=== PATIENT | male | born 1960 | race Caucasian/White ===

== ENCOUNTER 2022-10-19 20:11 | Emergency (ER) | payer OTHER, SELFPAY ==
[2022-10-19 20:21] VITALS: BP 151/95; PULSE 78; RESP 18; TEMP 36.8; O2SAT 97; BMI 30.3
[2022-10-19 22:03] VITALS: BP 178/94; PULSE 70; RESP 18; O2SAT 99
[2022-10-19 22:05] LABS: Appearance Urine Cloudy (Clear); Bilirubin Urine Negative (Negative); Blood Urine 3+ (Negative); Color Urine Yellow (Yellow); Glucose Urine 1+ (Negative); Ketones Urine Negative (Negative); Leukocyte Esterase Urine Negative (Negative); Nitrite Urine Negative (Negative); Protein Urine 1+ (Negative); Specific Gravity Urine 1.025 (1.000-1.030); Urobilinogen Urine 0.2 (0.2-1.0)
--- NOTE | 2022-10-19 22:13 | CRLHL7_ITS ---
For Patients: As a result of the Century Cures Act, medical imaging exams and procedure reports are released immediately into your electronic medical record. You may view this report before your referring provider. If you have questions, please contact your health care provider. INDICATION: .RT FLANK PAIN TECHNIQUE: CT abdomen and pelvis without contrast. COMPARISON: None. FINDINGS: Lower chest: Calcified granuloma. Subsegmental atelectasis. ASD closure device. Atherosclerotic calcifications. ABDOMEN: Liver: Normal attenuation. Gallbladder and biliary: Cholelithiasis in an otherwise normal gallbladder. Normal caliber bile ducts. Spleen: Normal size and attenuation. Pancreas: The noncontrast pancreas is homogeneous in attenuation without peripancreatic inflammatory changes or ductal dilatation. Adrenal glands: Tiny right adrenal nodule is incompletely characterized however may reflect an adenoma. Kidneys and ureters: Mild right-sided hydroureteronephrosis secondary to a 1 millimeter stone in the right UVJ. There is perinephric stranding. Subcentimeter hypodensities are too small to characterize however statistically represent cysts. GI tract: Stomach is partially distended with oral debris and air. Tiny duodenal lipoma. Normal caliber small and large bowel loops. Normal appendix. Colonic diverticulosis without diverticulitis. Vascular structures: Normal caliber aorta with atherosclerotic calcifications. Retro aortic left renal vein, normal variant. Lymph nodes: No lymphadenopathy in the abdomen or pelvis by size criteria. Peritoneum: No free air, free fluid, or focal drainable fluid collection. PELVIS: Genitourinary system: Urinary bladder is decompressed. Prostatectomy. SKELETAL STRUCTURES AND SOFT TISSUES: Diffuse sclerotic metastases throughout the skeleton. IMPRESSION: 1. Mild right-sided hydroureteronephrosis secondary to a 1 millimeter stone within the right UVJ. There is perinephric stranding. 2. Diffuse sclerotic metastases throughout the skeleton. Please note that all CT scans at this facility use dose modulation, iterative reconstruction, and/or weight-based dosing when appropriate to reduce radiation dose to as low as reasonably achievable. Dictated by Rajat Sanz MD @ 10/20/2022 12:53:58 AM (Electronically Signed)
--- NOTE | 2022-10-19 22:25 | ED.GENADULT ---
HPI - General Adult General Time Seen by Provider: 22:25 Date Seen: 10/19/22 Chief complaint: Urogenital Problems, Male Stated complaint: Can't urinate, back pain Time Seen by Provider: 10/19/22 21:55 Source: patient Mode of arrival: ambulatory Limitations: no limitations History of Present Illness HPI narrative: Patient is a 61-year-old male with history of prostate cancer with metastasis to his bone presented emergency department for right flank pain and difficulty urinating. Patient started chemotherapy 21 days ago and is set to get his next dose this upcoming Friday. Patient states he started having flank pain today and they tried to get a hold of his urologist but were unable to. Pain was getting worse and is having difficulty urinating was concerned they were related. He does states he was told that the chemotherapy he is on will cause urinary retention and constipation. He also knows blood in his urine the other day but that has since resolved. He has urinated several times throughout the day but only small amounts. Denies fevers, chills, chest pain, dysuria, abdominal pain, nausea vomiting, diarrhea, headache, lightheadedness, dizziness. Related Data Home Medications Medication Instructions Recorded Confirmed aspirin 81 mg tablet,delayed 81 mg PO DAILY 10/19/22 10/19/22 release (Adult Aspirin Regimen) famotidine 40 mg tablet 40 mg PO DAILY 10/19/22 10/19/22 isosorbide mononitrate 60 mg 60 mg PO DAILY 10/19/22 10/19/22 tablet,extended release 24 hr losartan 50 mg-hydrochlorothiazide 1 tab PO DAILY 10/19/22 10/19/22 12.5 mg tablet Allergies Allergy/AdvReac Type Severity Reaction Status Date / Time iodine Allergy Severe Verified 10/19/22 20:27 Review of Systems Status of ROS: Reports: 10 or more systems reviewed and unremarkable except as noted in History and below Exam Narrative: Exam Narrative: Const: Well-nourished, Well-developed, in mild distress Eyes: PERRL, no conjunctival injection, and symmetrical lids ENMT: Atraumatic external nose and ears. Moist mucous membranes. Neck: Symmetric, trachea midline, No thyromegaly. CVS: RRR, No murmurs or gallops. Peripheral pulses 2+ and equal in all extremities RESP: Unlabored respiratory effort. Clear to auscultation bilaterally. GI: Nontender/Nondistended, No rebound or guarding. Mild CVA tenderness on the right MSK:Extremities w/o deformity, Normal Active ROM Skin: Warm, Dry. No rashes or lesions. Neuro: Normal Muscle tone, No focal neurological deficits. Psych: Awake, Alert, & Oriented x3. Appropriate mood and affect. Const: Vital Signs, click to edit/add: Vital Signs - 24 hr 10/19/22 20:21 10/19/22 22:03 Temperature 98.3 F Pulse Rate [Pulse Oximeter] 78 70 Respiratory Rate 18 18 Blood Pressure [Ri t Upper Arm] 151/95 H 178/94 H Pulse Oximetry 97 99 Oxygen Delivery Me thod Room Air Room Air Course Vital Signs Vital signs: Initial Vital Signs Temperature 98.3 F 10/19/22 20:21 Temperature Source Oral 10/19/22 20:21 Pulse Rate 78 10/19/22 20:21 Respiratory Rate 18 10/19/22 20:21 Blood Pressure 151/95 H 10/19/22 20:21 Blood Pressure Mean 113 H 10/19/22 20:21 Blood Pressure Position Sitting 10/19/22 20:21 Pulse Oximetry 97 10/19/22 20:21 Oxygen Delivery Method Room Air 10/19/22 20:21 Vital Signs Temperature 98.3 F 10/19/22 20:21 Pulse Rate 78 10/19/22 20:21 Respiratory Rate 18 10/19/22 20:21 Blood Pressure 151/95 H 10/19/22 20:21 Pulse Oximetry 97 10/19/22 20:21 Oxygen Delivery Method Room Air 10/19/22 20:21 Temperature 98.3 F 10/19/22 20:21 Pulse Rate 70 10/19/22 22:03 Respiratory Rate 18 10/19/22 22:03 Blood Pressure 178/94 H 10/19/22 22:03 Pulse Oximetry 99 10/19/22 22:03 Oxygen Delivery Method Room Air 10/19/22 22:03 Medical Decision Making MDM Narrative Medical decision making narrative: Patient is a 61-year-old male presented emergency department for right flank pain. He has a history of prostate cancer him was started on chemotherapy 21 days ago. His next round is due this upcoming Friday. Today he began to have flank pains day and try to get hold of his urologist was unable to. He states he is only able urinate small amounts at a time and was told by his oncologist that urinary retention can be a side effect of the chemotherapy. CBC, CMP, urinalysis were ordered. Also ordered a bladder scan. CT scan without contrast also ordered. Bladder scan returned showing an empty bladder. He has not have any urinary retention at this time. Urinalysis show owns a large amount of blood but no signs of an infection. Patient might be having a kidney stone. CMP shows some slightly elevated liver enzymes. Potassium is 3.2 and this was replenished. CBC shows no concerning abnormalities. CT results returned showing a 1 mm kidney stone at the right UVJ consistent with the patient's symptoms. He is doing well at this time. There is no signs of a infected kidney stone. He will be discharged home. He agrees with this plan. Lab Data Labs: Lab Results 10/19/22 10/19/22 Range/Units 21:56 22:20 WBC 7.05 (4.50-11.00) K/uL RBC 4.41 (4.30-5.90) m/uL Hgb 13.4 L (13.5-17.5) gm/dL Hct 37.6 (37.0-53.0) % MCV 85 (80-100) fL MCH 30 (26-34) pg MCHC 36 (32-36) gm/dL RDW Coeff of Pat 11.8 (11.5-15.5) % Plt Count 186 (140-440) K/uL Neut % (Auto) 70.9 (42.0-72.0) % Lymph % (Auto) 20.7 (20-44) % [place] % (Auto) 7.0 (0.0-11.0) % Eos % (Auto) 0.1 (0.0-7.0) % Baso % (Auto) 0.6 (0.0-3.0) % Neut # (Auto) 5.00 (1.7-7.0) K/uL Lymph # (Auto) 1.46 (0.90-2.90) K/uL [place] # (Auto) 0.50 (0.00-0.90) K/UL Eos # (Auto) 0.01 (0.00-0.50) K/uL Baso # (Auto) 0.04 (0.00-0.30) K/uL Abs Immat Gran (auto) 0.05 (0.00-0.30) K/uL Imm/Tot Granulo (auto) 0.7 % Sodium 137 (135-149) mmol/L Potassium 3.2 L (3.6-5.1) mmol/L Chloride 104 (96-114) mmol/L Carbon Dioxide 21 (20-32) mmol/L BUN 26 (7-30) mg/dL Creatinine 1.2 (0.5-1.5) mg/dL Estimated Creat Clear 67.11 Estimated GFR 68 ml/min Glucose 233 H (60-115) mg/dL Calcium 8.8 (8.4-10.6) mg/dL Total Bilirubin 0.7 (0.1-1.5) mg/dL AST 37 H (12-35) U/L ALT 53 H (4-50) U/L Alkaline Phosphatase 330 H (40-150) U/L Total Protein 6.7 (6.0-8.3) g/dL Albumin 3.8 (3.3-5.0) g/dL Lipase 67 (23-300) U/L Urine Color Yellow (Yellow) Urine Appearance Cloudy A (Clear) Urine pH 5.0 (5.0-8.5) Ur Specific [place] 1.025 (1.000-1.030) Urine Protein 1+ A (Negative) Urine Glucose (UA) 1+ A (Negative) Urine Ketones Negative (Negative) Urine Blood 3+ A (Negative) Urine Nitrite Negative (Negative) Urine Bilirubin Negative (Negative) Urine Urobilinogen 0.2 (0.2-1.0) Ur Leukocyte Esterase Negative (Negative) Urine RBC 50-100 A (0-2) Urine WBC 0-2 (0-5) Ur Squamous Epith Cells None (None-Few) Urine Bacteria None (None) Discharge Plan Discharge Patient Disposition: Home w/ Parent or Adult Additional Instructions: You have a kidney stone. Stay well hydrated and f/u with your urologist. Take ibuprofen for pain. Prescriptions: No Action aspirin [Adult Aspirin Regimen] 81 mg tablet,delayed release (DR/EC) 81 mg PO DAILY losartan-hydrochlorothiazide 50-12.5 mg tablet 1 tab PO DAILY famotidine 40 mg tablet 40 mg PO DAILY isosorbide mononitrate 60 mg tablet extended release 24 hr 60 mg PO DAILY Follow Up/Referrals: Provider,Not a Local [Primary Care Provider] - Stand Alone Forms: [employer] Info Instructions
[2022-10-19 22:31] LABS: RBC Urine 50-100 (0-2); WBC Urine 0-2 (0-5)
[2022-10-19 22:40] LABS: Basophils Absolute Auto 0.04 K/uL (0.00-0.30); Basophils Percent Auto 0.6 % (0.0-3.0); Eosinophils Absolute Auto 0.01 K/uL (0.00-0.50); Eosinophils Percent Auto 0.1 % (0.0-7.0); Hematocrit 37.6 % (37.0-53.0); Hemoglobin* 13.4 gm/dL (13.5-17.5); Immature Granulocytes Abs Auto 0.05 K/uL (0.00-0.30); Immature Granulocytes Pct Auto 0.7 %; Lymphocytes Absolute Auto 1.46 K/uL (0.90-2.90); Lymphocytes Percent Auto 20.7 % (20-44); Mean Corpuscular HGB Conc 36 gm/dL (32-36); Mean Corpuscular Hemoglobin 30 pg (26-34); Mean Corpuscular Volume 85 fL (80-100); Neutrophils Percent Auto 70.9 % (42.0-72.0); Platelet Count* 186 K/uL (140-440); RDW Coefficient of Variation % 11.8 % (11.5-15.5); Red Blood Count 4.41 m/uL (4.30-5.90); White Blood Count* 7.05 K/uL (4.50-11.00)
[2022-10-19 22:50] LABS: Albumin* 3.8 g/dL (3.3-5.0); Chloride* 104 mmol/L (96-114); Slide Review Reflex No
[2022-10-19 22:51] LABS: Potassium* 3.2 mmol/L (3.6-5.1); Sodium* 137 mmol/L (135-149)
[2022-10-19 22:53] LABS: Bilirubin Total* 0.7 mg/dL (0.1-1.5); Carbon Dioxide* 21 mmol/L (20-32); Creatinine* 1.2 mg/dL (0.5-1.5); Est. Creatinine Clearance* 67.11; Estimated Glomerular Filt Rate 68 ml/min
[2022-10-19 22:54] LABS: Alanine Aminotransferase* 53 U/L (4-50); Alkaline Phosphatase* 330 U/L (40-150); Aspartate Amino Transferase* 37 U/L (12-35); Blood Urea Nitrogen* 26 mg/dL (7-30); Calcium* 8.8 mg/dL (8.4-10.6); Glucose* 233 mg/dL (60-115); Lipase* 67 U/L (23-300); Total Protein* 6.7 g/dL (6.0-8.3)
[2022-10-19] MEDS: MORPHINE 4 MG/ML INJ IVP (23:04)
[2022-10-19] MEDS: ONDANSETRON 2 MG/ML inj 4 MG IVP (23:04)
[2022-10-19] MEDS: POTASSIUM CHLORIDE 10 MEQ CAPSULE ER 40 MEQ PO (23:39)
== END 2022-10-20 01:06 | disposition home or self-care (01) ==
PROVIDERS: Emergency Provider Student in an Organized Health Care Education/Training Program
DX: N13.2 Hydronephrosis with renal and ureteral calculous obstruction (principal)
CPT/HCPCS: 36415; 74176; 80053; 81001; 83690; 85025; 96374; 96375; 99283; 99284; A9270; J2270; J2405

== ENCOUNTER 2023-04-09 11:47 | Outpatient (CLI) | payer OTHER, SELFPAY ==
--- NOTE | 2023-04-09 13:00 | XR_ITS ---
Patient: PHILLIP TARANGO Facility:?[facility] Patient ID:?[id number] Site Patient ID:?[id number]. Site :?[id number] Study:?DEXA-Bone Density DEXA - Spine/Hips-04/09/2023 2:00:24 PM Ordering Physician:?[facility] [place] Final Report: DXA BONE MINERAL DENSITY STUDY Current height (in): 71.0. Weight (lb): 219.0. Menopause age: N/A. Ethnicity: White. Reason for exam: Prostate cancer. 1. Have you had a previous hip or vertebral fracture? No. 2. Have you had any fractures during your adult life which did not result from significant trauma (e.g., auto accident)? No. 3. Did either of your parents have a hip fracture? No. 4. Do you smoke? No. 5. Have you ever taken Glucocorticoids? No. 6. Do you have rheumatoid arthritis? No. 7. Do you have secondary osteoporosis? No. 8. Do you drink 3 or more alcoholic drinks per day? No. 9. Are you being treated for osteoporosis? No. 10. Have you ever taken any of the following medications: Actonel, Evista, Fosamax, Miacalcin, Reclast, Boniva, Forteo, HRT (i.e. estrogen/hormone therapy), Protelos, Prolia, Vitamin D, Calcium, other ? please specify. ANSWER: No. 11. Do you have any of the following medical conditions: Anorexia or bulimia, asthma or emphysema, end stage renal disease, hyperparathyroidism, any seizure disorders, cancer, inflammatory bowel diseases, hysterectomy, other ? please specify. ANSWER: Yes, cancer. 12. What was your maximum height (inches)? 71. 13. Do you perform weight bearing exercise regularly? No. 14. Do you regularly consume dairy products? Yes. 15. Do you drink caffeinated beverages? Yes. TECHNIQUE: Bone mineral density study was performed using the [employer]. FINDINGS: The results of the study expressed as bone mineral density (BMD) are as follows: Lumbar spine L1 to L4: BMD: 1.472 g/cm2. T-score: 3.5. Z-score: 4.2 Neck Left: BMD: 1.051 g/cm2. T-score: 0.9. Z-score: 1.9. Right: BMD: 1.156 g/cm2. T-score: 1.7. Z-score: 2.7. Total Left: BMD: 1.139 g/cm2. T-score: 0.7. Z-score: 1.2. Right: BMD: 1.450 g/cm2. T-score: 2.8. Z-score: 3.3. IMPRESSION: Normal bone density. Rajat Miller M.D. Diagnostic Radiologist [email or web address] DSM/djw: D& Transcribed: 10:20 am DW/Dictated by: Rajat Miller MD @ 04/11/2023 9:02:00 AM Signed by:?Rajat Miller MD @04/11/2023 10:42:59 AM (Electronic Signature)
== END 2023-04-09 11:48 | disposition home or self-care (01) ==
PROVIDERS: Visit Provider Internal Medicine Hematology & Oncology
DX: C61 Malignant neoplasm of prostate (principal)
CPT/HCPCS: 77080